=== PATIENT | female | born 1985 | race Caucasian/White ===

== ENCOUNTER 2021-04-27 06:00 | Inpatient (IN) | payer OTHER ==
[2021-04-27 06:51] VITALS: BMI 28.7
[2021-04-27] MEDS ORDERED: morphine SULFATE/PF 1 MG/2 ML (2cc Syringe - QUVA) EP ONE (07:50)
[2021-04-27] MEDS ORDERED: OXYTOCIN 20 UNITS in 0.9% NS 20 UNIT/1,000 ML INFUS.BAG IV ONE ×2 (07:59→10:02)
[2021-04-27] MEDS ORDERED: ELECTROLYTE-148 SOLN 500 ML IV ONE (08:03)
[2021-04-27] MEDS ORDERED: CITRIC ACID/SODIUM CITRATE 30 ML UNIT-DOSE CUP PO ONE (08:03)
[2021-04-27] MEDS: ELECTROLYTE-148 SOLN 1,000 ML IV SCH (08:10)
[2021-04-27] MEDS ORDERED: ceFAZolin SODIUM 1 GM VIAL ONE (08:21)
[2021-04-27] MEDS ORDERED: PHENYLEPHRINE HCL 10 MG/1 ML SINGLE DOSE VIAL ONE (08:33)
[2021-04-27] MEDS ORDERED: OXYTOCIN 10 UNIT/ML 10ML MDV ONE (08:38)
[2021-04-27] MEDS ORDERED: SODIUM CHLORIDE 0.9% P/F 10 ML VIAL IJ ONE (08:55)
[2021-04-27] MEDS ORDERED: METHYLERGONOVINE MALEATE 0.2 MG/1 ML AMP IM PRN (10:01)
[2021-04-27] MEDS ORDERED: ONDANSETRON 4 MG/2 ML VIAL ONE (10:02)
[2021-04-27] MEDS: ONDANSETRON 4 MG/2 ML VIAL IVPUSH PRN ×2 (10:10→13:54)
[2021-04-27] MEDS: OXYTOCIN 20 UNITS in 0.9% NS 20 UNIT/1,000 ML INFUS.BAG IV SCH (10:20)
[2021-04-27] MEDS ORDERED: IBUPROFEN 800 MG/8 ML IJ IVPB ONE (11:02)
[2021-04-27] MEDS: IBUPROFEN 800 MG/8 ML IJ IVPB PRN (11:10)
[2021-04-28] MEDS: IBUPROFEN 800 MG/8 ML IJ IVPB PRN (04:20)
[2021-04-28 08:10] LABS: HEMATOCRIT 33.9 % (32.4-45.2); HEMOGLOBIN 11.4 GM/dL (10.7-15.3); MCH 28.8 pg (25.7-33.7); MCHC 33.6 g/dl (32.0-36.0); MEAN CELL VOLUME 85.8 fl (80-96); MEAN PLT VOLUME 8.3 fl (7.5-11.1); PLATELET COUNT 243 10^3/uL (134-434); RBC 3.95 M/mm3 (3.60-5.2); RDW 16.2 % (11.6-15.6); WHITE BLOOD COUNT 16.7 K/mm3 (4.0-10.0)
[2021-04-28] MEDS: ELECTROLYTE-148 SOLN 1,000 ML IV SCH (09:15)
[2021-04-28] MEDS: PRENATAL VITAMINS W/ FOLIC ACID TABLET (FP) PO SCH (09:16)
[2021-04-28] MEDS: IBUPROFEN 600 MG TABLET (FP) PO PRN ×3 (09:16→21:18)
[2021-04-28] MEDS: SIMETHICONE 80 MG TAB.CHEW (FP) PO PRN ×3 (09:16→22:50)
[2021-04-28 09:51] LABS: ANISOCYTOSIS 0; HELMET CELLS 0; HOWELL-JOLLY BODIES 0; MACROCYTOSIS 0; OVALOCYTE 0; PLATELET ESTIMATE NORMAL; ROULEAU 0; SICKELED CELLS 0; TARGET CELLS 0; TEAR DROP CELLS 0; TOXIC GRANULATION 0
[2021-04-28] MEDS ORDERED: BISACODYL 10 MG SUPP.RECT RC PRN (10:01)
[2021-04-28] MEDS: OXYTOCIN 20 UNITS in 0.9% NS 20 UNIT/1,000 ML INFUS.BAG IV SCH (10:57)
[2021-04-28] MEDS: oxyCODONE HCL 5 MG TABLET PO PRN ×2 (16:25→21:18)
[2021-04-28] MEDS: SENNOSIDES/DOCUSATE COMBO (SENNA PLUS) TABLET (UD) PO PRN (22:47)
[2021-04-28] MEDS: ACETAMINOPHEN 325 MG TABLET (FP) PO PRN (22:49)
[2021-04-29] MEDS: oxyCODONE HCL 5 MG TABLET PO PRN ×3 (02:39→20:59)
[2021-04-29] MEDS: IBUPROFEN 600 MG TABLET (FP) PO PRN ×3 (02:39→18:32)
[2021-04-29] MEDS: SIMETHICONE 80 MG TAB.CHEW (FP) PO PRN ×4 (02:39→18:32)
[2021-04-29] MEDS: ELECTROLYTE-148 SOLN 1,000 ML IV SCH (08:51)
[2021-04-29] MEDS: PRENATAL VITAMINS W/ FOLIC ACID TABLET (FP) PO SCH (10:09)
[2021-04-29] MEDS: ACETAMINOPHEN 325 MG TABLET (FP) PO PRN (20:58)
[2021-04-29] MEDS: SENNOSIDES/DOCUSATE COMBO (SENNA PLUS) TABLET (UD) PO PRN (21:00)
[2021-04-30] MEDS: IBUPROFEN 600 MG TABLET (FP) PO PRN (02:16)
[2021-04-30] MEDS: SIMETHICONE 80 MG TAB.CHEW (FP) PO PRN ×2 (02:18→07:25)
[2021-04-30] MEDS: oxyCODONE HCL 5 MG TABLET PO PRN (07:25)
[2021-04-30] MEDS: PRENATAL VITAMINS W/ FOLIC ACID TABLET (FP) PO SCH (09:43)
[2021-04-30 13:17] VITALS: BP 107/73; PULSE 84; TEMP 98.1
== END 2021-04-30 13:10 | disposition home or self-care (01) | DRG 540 ==
LOC: JLDR 06:00 → J3W 11:05
PROVIDERS: ADMIT Obstetrics & Gynecology; ATTEND Obstetrics & Gynecology
PROC: 10D00Z1 Extraction of Products of Conception, Low, Open Approach (ICD-10-PCS; principal; 2021-04-27)
PROC: 0UL70ZZ Occlusion of Bilateral Fallopian Tubes, Open Approach (ICD-10-PCS; 2021-04-27)
PROC: 0DNW0ZZ Release Peritoneum, Open Approach (ICD-10-PCS; 2021-04-27)
PROC: 0UB90ZZ Excision of Uterus, Open Approach (ICD-10-PCS; 2021-04-27)
DX: O34.211 Maternal care for low transverse scar from previous cesarean delivery (principal); O34.13 Maternal care for benign tumor of corpus uteri, third trimester; D25.1 Intramural leiomyoma of uterus; O99.892 Other specified diseases and conditions complicating childbirth; N73.6 Female pelvic peritoneal adhesions (postinfective); Z3A.39 39 weeks gestation of pregnancy; Z37.0 Single live birth; Z30.2 Encounter for sterilization
CPT/HCPCS: 36415; 85025